=== PATIENT | female | born 1950 | race Caucasian/White ===

== ENCOUNTER 2016-12-30 10:51 | Day surgery (SDC) | payer MEDICARE ==
[2016-12-28 16:14] VITALS: BMI 27.4
[~2016-12-30 10:51] MED LIST: LACTATED RINGERS 1,000 ML IV SCH
[2016-12-30 11:30] VITALS: TEMP 98.1
[2016-12-30] MEDS ORDERED: LIDOCAINE 1% 20 ML VIAL (10MG/ML) FOR IV START INTRADERMA ONE (11:42)
[2016-12-30] MEDS ORDERED: GLYCOPYRROLATE 0.2 MG/ML 2 ML VIAL ONE (12:07)
[2016-12-30] MEDS ORDERED: PROPOFOL 10 MG/ML 20 ML VIAL IV ONE (12:07)
[2016-12-30] MEDS ORDERED: LIDOCAINE 1% INJ 10MG/ML (20 ML MDV) ONE (12:07)
--- NOTE | 2016-12-30 12:36 | P.PCN ---
Date of Procedure: 12/30/16 Procedure(s) Performed: Procedure: Esophagogastroduodenoscopy and biopsy. Preoperative diagnosis: Abdominal symptoms and abnormal CT(showing gastric fold thickening. Postoperative diagnosis: 1. Small sliding hiatal hernia with no obvious esophagitis or complicated reflux disease. 2. Mild gastritis. 3. No ulcers, tumors or gastric outlet obstruction. Preparation and sedation: Was provided by anesthesia. Brief clinical history: The patient is a 66-year-old female who I have evaluated in the office last month and scheduled her for this exam. She was referred for abdominal symptoms that started around September 2016. Back in June she had a screening colonoscopy which I performed and it was normal. In September she started to have abdominal bloating and pain under her ribs and she started to experience heartburn. Apparently the pain and heartburn is improved after a few weeks but the bloating and gas remained, mostly after she eats. No change in bowel movements, 1-3 BM per day. No nausea, vomiting or weight loss. No dietary triggers or change in medications. Had upper GI and small bowel follow-through 10/18/2016 that showed GE reflux. Ultrasound same day showed possible simple cyst on her liver. CT was done early November and that showed multiple liver cysts and gastric fold thickening. Procedure: With the patient on her left lateral decubitus position and after informed consent and adequate sedation, I passed the Olympus-GIF 160 video upper endoscope through the cricopharyngeus down the esophagus. GE junction was around 36 cm from the incisors and there was a small sliding hiatal hernia around 1 cm to 1.5 cm in size. The esophagus did not show any erosions, ulcers , strictures or Steen's esophagus. The endoscope was then passed into the stomach which was insufflated with air and inspected in detail including the retroflex view in the cardia. There was mottling and erythema consistent with gastritis but no ulcers, erosions or tumors. Pyloric channel, duodenal bulb, post bulbar area and descending duodenum appeared within normal limits, with minimal erythema and friability. Because of her symptoms, I obtained biopsies from the duodenum in addition to biopsies from the antrum and esophagus then the endoscope was withdrawn. The patient tolerated the procedure well. Plan: The patient was reassured. Will await biopsy results. She will follow- up with you as planned and further plans will be made based on her course and biopsy results. I will keep you updated on her progress.
[2016-12-30 12:46] VITALS: BP 125/77; PULSE 89; RESP 18
== END 2016-12-30 13:17 | disposition home or self-care (01) ==
LOC: ORWHC2ENDO 10:51
DX: K29.50 Unspecified chronic gastritis without bleeding (principal); K20.9 Esophagitis, unspecified; K44.9 Diaphragmatic hernia without obstruction or gangrene; E07.9 Disorder of thyroid, unspecified; Z79.899 Other long term (current) drug therapy; Z88.0 Allergy status to penicillin; Z91.048 Other nonmedicinal substance allergy status
CPT/HCPCS: 88305; 88342; 43239; J2001; J2704; 99153

== ENCOUNTER → 2023-12-14 | Outpatient (CLI) | payer MEDICARE ==
--- NOTE | 2023-12-14 20:03 | MM ---
Reason for Exam: Screening (asymptomatic). Last screening mammogram was performed 12 month(s) ago. Patient History: Menarche at age 10. First Full-Term at age 21. Hysterectomy at age 32. Maternal aunt had breast cancer. Risk Values: Therese 5 year model risk: 1.7%. NCI Lifetime model risk: 4.3%. Tissue Density: The breast tissue is heterogeneously dense. This may lower the sensitivity of mammography. Findings: Analyzed By CAD. There is no suspicious group of microcalcifications or new suspicious mass in either breast. Overall Assessment: Negative, BI-RAD 1 Management: Screening Mammogram of both breasts in 1 year. . Patient should continue monthly self-breast exams. A clinical breast exam by your physician is recommended on an annual basis. This exam should not preclude additional follow-up of suspicious palpable abnormalities. Note on Hterese scores and lifetime risk: 1. A Therese score greater than 3% is considered moderate risk. If this is the case, consider specialist referral to assess eligibility for a risk reducing agent. 2. If overall lifetime risk for the development of breast cancer is 20% or higher, the patient may qualify for future screening with alternating mammogram and breast MRI. Electronically signed and approved by: Arelis Avina M.D. Radiologist
== END | disposition home or self-care (01) ==
LOC: RADMAMWWP 06:56
PROVIDERS: ATTEND Family Medicine
DX: Z12.31 Encounter for screening mammogram for malignant neoplasm of breast (principal); Z80.3 Family history of malignant neoplasm of breast
CPT/HCPCS: 77063; 77067

== ENCOUNTER 2024-05-02 11:20 | Emergency (ER) | payer MEDICARE ==
[2024-05-02 11:28] LABS: Glucose,Whole Blood 121 mg/dL (70-110)
[2024-05-02 11:35] VITALS: BP 166/105; PULSE 80; RESP 18; TEMP 96.8
--- NOTE | 2024-05-02 11:37 | ED ---
General Adult HPI - General Stated complaint: Fall Time Seen by Provider: 05/02/24 11:23 Source: patient, EMS, RN notes reviewed, old records reviewed Limitations: altered mental status - History of Present Illness Initial comments: 74-year-old female brought in by paramedics as a democrat 1, altered level of consciousness after fall with head injury. Initial medical history is not known. Medications not known. Patient is altered. She seems to be moving all extremities. Uncertain if this patient fell and had a seizure or if she potentially had a seizure and then fell. She has a trauma activation due to the uncertainty of her presentation. She is incontinent of urine and has had multiple episodes of vomiting. - Related Data Home Medications Medication Instructions Recorded Confirmed Levothyroxine Sodium [Synthroid] 100 mcg PO DAILY 07/02/16 12/30/16 Calcium Carbonate/Vitamin D3 1 each PO DAILY 12/28/16 12/30/16 [Calcium 600-Vit D3 400 Caplet] Cholecalciferol [Vitamin D3] 1,000 unit PO DAILY 12/28/16 12/30/16 L.acidoph,Paracasei, B.lactis 1 each PO DAILY 12/28/16 12/30/16 [Probiotic] Multivitamins, Thera [Multivitamin] 1 tab PO DAILY 12/28/16 12/30/16 [place]-3 Fatty Acids/Fish Oil [Fish 1 each PO DAILY 12/28/16 12/30/16 Oil 1,000 mg Softgel] Wellness Complex 1 tab PO DAILY 12/28/16 12/30/16 Allergies Allergy/AdvReac Type Severity Reaction Status Date / Time Penicillins Allergy Severe passed Verified 05/02/24 11:35 out, "heart quit beating" adhesive tape Allergy Rash/Hives Verified 05/02/24 11:35 Review of Systems ROS Statement: Those systems with pertinent positive or pertinent negative responses have been documented in the HPI. ROS Other: All systems not noted in ROS Statement are negative. Past Medical History Past Medical History: Osteoarthritis (OA), Skin Disorder, Thyroid Disorder Additional Past Medical History / Comment(s): hx migraines(visual), psoriasis, CT scan shows thickening gastric wall per pt, c/o gas,bloating History of Any Multi-Drug Resistant Organisms: None Reported Past Surgical History: Section, Hysterectomy, Orthopedic Surgery Additional Past Surgical History / Comment(s): ganglion cyst left hand, rt hand middle finger-surgery for partial amputation of end of finger Past Anesthesia/Blood Transfusion Reactions: Family History of Problems w/ Anesthesia, Motion Sickness Additional Past Anesthesia/Blood Transfusion Reaction / Comment(s): mother-PONV Past Psychological History: No Psychological Hx Reported Past Alcohol Use History: None Reported Past Drug Use History: None Reported - Past Family History Father Family Medical History: Cancer General Exam General appearance: alert, in distress Head exam: Present: normocephalic, other (Occipital scalp laceration hematoma) Eye exam: Present: normal appearance, PERRL ENT exam: Present: normal exam Neck exam: Present: normal inspection. Absent: tenderness, meningismus Respiratory exam: Present: normal lung sounds bilaterally. Absent: respiratory distress, wheezes Cardiovascular Exam: Present: regular rate, normal rhythm GI/Abdominal exam: Present: soft. Absent: distended, tenderness, guarding Neurological exam: Present: alert, other (Patient appears to be moving). Absent: oriented X3 Skin exam: Present: warm, diaphoretic Course Vital Signs 05/02/24 11:28 Temperature 96.8 F L Pulse Rate 80 Respiratory 18 Rate Blood Pressure 166/105 O2 Sat by Pulse 98 Oximetry - Reevaluation(s) Reevaluation #1: 05/02/24 11:[address] Stone covering for trauma. Reevaluation #2: 05/02/24 11:36 Case discussed with the patient's daughter who states she has no medical problems and is on no medication. Reevaluation #3: 05/02/24 12:[address] Ascencio, recommends Keppra and blood pressure less than 150. Patient had been started on Keppra and Cardene for blood pressure control. Recommend transfer to [facility] Reevaluation #4: 05/02/24 12:[address] Herrera, will accept transfer Procedures - Laceration Laceration #1 Consent Obtained: emergent situation Indication: laceration Site: scalp Size (cm): 2 Description: linear Depth: simple, single layer Pre-repair: wound explored Size of Sutures: other (ted) Number of Sutures: 3 Technique: simple, interrupted Patient Tolerated Procedure: well Medical Decision Making - Medical Decision Making Was pt. sent in by a medical professional or institution (, PA, ENVIRONMENTAL SERVICES AIDE, urgent care, hospital, or [place] health care facility...) When possible be specific @ -No Did you speak to anyone other than the patient for history (EMS, parent, family, police, friend...)? What history was obtained from this source @ -No Did you review nursing and triage notes (agree or disagree)? Why? @ -I reviewed and agree with nursing and triage notes Were old charts reviewed (outside hosp., previous admission, EMS record, old EKG, old radiological studies, urgent care reports/EKG's, [place] health care facility records)? Report findings @ -No old charts were reviewed Differential Seizure: Recurrent seizure disorder, febrile seizure, alcohol withdrawal, stimulants, men ingitis, encephalitis, intercranial hemorrhage, intracranial tumor, stroke, eclampsia, thyrotoxicosis, hypocalcemia, hyponatremia, hypernatremia, hypomagnesemia, psychogenic, this is not meant to be an all-inclusive list. Differential CVA Ischemic stroke, hemorrhagic stroke, brain tumor, atypical migraine, Wernicke's encephalopathy, seizure, multiple sclerosis, meningitis, encephalitis, hypoglyc emia, Guillain-Rodriguez, electrolytes disturbance, myasthenia gravis.... This is not meant to be an all-inclusive list EKG interpreted by me (3pts min.). @ -Sinus rhythm rate of 60, DE interval 137, QRS duration 83, QTc [address] segment elevation. X-rays interpreted by me (1pt min.). @X-rays of the chest and pelvis are negative for traumatic injury. CT interpreted by me (1pt min.). @CT imaging of the brain shows intracranial hemorrhage, subarachnoid hemorrhage, CT angiography pending U/S interpreted by me (1pt. min.). @ -None done What testing was considered but not performed or refused? (CT, X-rays, U/S, labs)? Why? @ -None What meds were considered but not given or refused? Why? @ -None Did you discuss the management of the patient with other professionals (professionals i.e. , PA, ENVIRONMENTAL SERVICES AIDE, lab, RT, psych nurse, psych social worker, anodic treater, teacher, mail officer, pillowcase cleaner)? Give summary @ -Case discussed with Dr. Stone and Dr. Torres. This was both a trauma activation and a stroke activation. Was smoking cessation discussed for >3mins.? @ -No Was critical care preformed (if so, how long)? @ -No Were there social determinants of health that impacted care today? How? (Homel essness, low income, unemployed, alcoholism, drug addiction, transportation, low edu. Level, literacy, decrease access to med. care, snf, rehab)? @ -No Was there de-escalation of care discussed even if they declined (Discuss DNR or withdrawal of care, Hospice)? DNR status @ -No What co-morbidities impacted this encounter? (DM, HTN, Smoking, COPD, CAD, Cancer, CVA, ARF, Chemo, Hep., AIDS, mental health diagnosis, sleep apnea, morbid obesity)? @ -None Was patient admitted / discharged? Hospital course, mention meds given and route, prescriptions, significant lab abnormalities, going to OR and other pertinent info. @ -[74-year-old female who was [place] [facility]. Patient was confused, had urinary incontinence and was vomiting. She was altered with initial GCS of 12. Patient has a left occipital hematoma with 2 cm laceration. No active bleeding. Head CT shows intracranial hemorrhage, subarachnoid hemorrhage. The patient care is coordinated through the stroke team and the patient will require transfer to [facility]. Patient started on Cardene for blood pressure control and Keppra for seizure prophylaxis. Undiagnosed new problem with uncertain prognosis? @ -No Drug Therapy requiring intensive monitoring for toxicity (Heparin, Nitro, Insuli n, Cardizem)? @ -No Were any procedures done? @ -Yes, laceration repair Diagnosis/symptom? @ -Subarachnoid hemorrhage, suspected seizure, Acute, or Chronic, or Acute on Chronic? @Acute Uncomplicated (without systemic symptoms) or Complicated (systemic symptoms)? @ -Complicated Side effects of treatment? @ -No Exacerbation, Progression, or Severe Exacerbation? @ -No Poses a threat to life or bodily function? How? (Chest pain, USA, ID, pneumonia, PE, COPD, DKA, ARF, appy, cholecystitis, CVA, Diverticulitis, Homicidal, Suicidal, threat to staff... and all critical care pts) @ -[Yes, subarachnoid hemorrhage - Lab Data Result diagrams: 05/02/24 11:25 05/02/24 11:25 Lab Results 05/02/24 05/02/24 05/02/24 Range/Units 11:25 11:25 11:25 WBC 7.2 (3.8-10.6) k/uL RBC 4.74 (3.80-5.40) m/uL Hgb 13.6 (11.4-16.0) gm/dL Hct 41.8 (34.0-46.0) % MCV 88.1 (80.0-100.0) fL MCH 28.7 (25.0-35.0) pg MCHC 32.6 (31.0-37.0) g/dL RDW 12.9 (11.5-15.5) % Plt Count 364 (150-450) k/uL MPV 7.3 Neutrophils % 47 % Lymphocytes % 42 % Monocytes % 4 % Eosinophils % 3 % Basophils % 1 % Neutrophils # 3.3 (1.3-7.7) k/uL Lymphocytes # 3.0 (1.0-4.8) k/uL Monocytes # 0.3 (0-1.0) k/uL Eosinophils # 0.2 (0-0.7) k/uL Basophils # 0.1 (0-0.2) k/uL Sodium 140 (137-145) mmol/L Potassium 3.9 (3.5-5.1) mmol/L Chloride 112 H (98-107) mmol/L Carbon Dioxide 22 (22-30) mmol/L Anion Gap 6 mmol/L BUN 21 H (7-17) mg/dL Creatinine 0.76 (0.52-1.04) mg/dL Est GFR (CKD-EPI)AfAm 90 (>60 ml/min/1.73 sqM) Est GFR (CKD-EPI)NonAf 78 (>60 ml/min/1.73 sqM) Glucose 124 H (74-99) mg/dL POC Glucose (mg/dL) (70-110) mg/dL POC Glu Manufacturing Applications Engineer ID Plasma Lactic Acid Andre 2.6 H* (0.7-2.0) mmol/L Calcium 8.7 (8.4-10.2) mg/dL Total Bilirubin 0.5 (0.2-1.3) mg/dL AST 26 (14-36) U/L ALT 17 (4-34) U/L Alkaline Phosphatase 204 H (38-126) U/L Troponin I (0.000-0.034) ng/mL Total Protein 6.4 (6.3-8.2) g/dL Albumin 3.7 (3.5-5.0) g/dL Serum Alcohol <10 mg/dL 05/02/24 05/02/24 Range/Units 11:25 11:27 WBC (3.8-10.6) k/uL RBC (3.80-5.40) m/uL Hgb (11.4-16.0) gm/dL Hct (34.0-46.0) % MCV (80.0-100.0) fL MCH (25.0-35.0) pg MCHC (31.0-37.0) g/dL RDW (11.5-15.5) % Plt Count (150-450) k/uL MPV Neutrophils % % Lymphocytes % % Monocytes % % Eosinophils % % Basophils % % Neutrophils # (1.3-7.7) k/uL Lymphocytes # (1.0-4.8) k/uL Monocytes # (0-1.0) k/uL Eosinophils # (0-0.7) k/uL Basophils # (0-0.2) k/uL Sodium (137-145) mmol/L Potassium (3.5-5.1) mmol/L Chloride (98-107) mmol/L Carbon Dioxide (22-30) mmol/L Anion Gap mmol/L BUN (7-17) mg/dL Creatinine (0.52-1.04) mg/dL Est GFR (CKD-EPI)AfAm (>60 ml/min/1.73 sqM) Est GFR (CKD-EPI)NonAf (>60 ml/min/1.73 sqM) Glucose (74-99) mg/dL POC Glucose (mg/dL) 121 H (70-110) mg/dL POC Glu Manufacturing Applications Engineer ID Redd, Lindsey Plasma Lactic Acid Andre (0.7-2.0) mmol/L Calcium (8.4-10.2) mg/dL Total Bilirubin (0.2-1.3) mg/dL AST (14-36) U/L ALT (4-34) U/L Alkaline Phosphatase (38-126) U/L Troponin I <0.012 (0.000-0.034) ng/mL Total Protein (6.3-8.2) g/dL Albumin (3.5-5.0) g/dL Serum Alcohol mg/dL Critical Care Time Critical Care Time: Yes Total Critical Care Time: 35 Disposition Clinical Impression: Intracranial hemorrhage, Subarachnoid hemorrhage Disposition: OTHER INSTITUTION NOT DEFINED Condition: Serious Is patient prescribed a controlled substance at d/c from ED?: No Referrals: Dany Coleman DO [Primary Care Provider] - 1-2 days Time of Disposition: 12:09 - Out of Hospital Transfer - Req. Specs Out of Hospital Transfer - Requested Specifics: Other Emergency Center (Transfer to [facility])
[2024-05-02] MEDS: levETIRAcetam IV 2,000 MG in SODIUM CHLORIDE 0.9% 250 ML IVPB ONE (11:38)
[2024-05-02 11:39] LABS: Basophils # (A) 0.1 k/uL (0-0.2); Basophils % (A) 1 %; Eosinophils # (A) 0.2 k/uL (0-0.7); Eosinophils % (A) 3 %; HCT 41.8 % (34.0-46.0); HGB 13.6 gm/dL (11.4-16.0); Lymphocytes % (A) 42 %; MCH 28.7 pg (25.0-35.0); MCHC 32.6 g/dL (31.0-37.0); MCV 88.1 fL (80.0-100.0); Mean Platelet Volume 7.3; Monocytes # (A) 0.3 k/uL (0-1.0); Monocytes % (A) 4 %; Neutrophils # (A) 3.3 k/uL (1.3-7.7); Neutrophils % (A) 47 %; Platelet Count 364 k/uL (150-450); RBC 4.74 m/uL (3.80-5.40); RDW 12.9 % (11.5-15.5); WBC 7.2 k/uL (3.8-10.6)
[2024-05-02] MEDS: SODIUM CHLORIDE 0.9% 1,000 ML IV STA (11:45)
[2024-05-02] MEDS: ONDANSETRON 4 MG/2 ML VIAL IVP STA (11:45)
--- NOTE | 2024-05-02 11:51 | XR ---
EXAMINATION TYPE: XR pelvis AP view DATE OF EXAM: 05/02/2024 CLINICAL HISTORY: pain TECHNIQUE: Single view the pelvis is submitted. FINDINGS: No evidence for fracture, dislocation or bony lesion. Joint spaces are well-preserved. S I joints appear symmetric. IMPRESSION: 1. No acute fracture or dislocation seen. ICD 10 NO FRACTURE, INITIAL EVALUATION
--- NOTE | 2024-05-02 11:51 | XR ---
EXAMINATION TYPE: XR chest 1V portable DATE OF EXAM: 05/02/2024 HISTORY: Shortness of breath. COMPARISON: None. TECHNIQUE: Single view of the chest is submitted. FINDINGS: Demonstrated are scattered senescent parenchymal change. There is no evidence for focal infiltrate. The heart is stable. Hilar and mediastinal structures are within normal limits. Degenerative changes are seen of the dorsal spine. IMPRESSION: 1. Chronic changes without evidence for acute pulmonary disease.
[2024-05-02 11:55] LABS: ALT 17 U/L (4-34); AST 26 U/L (14-36); African American GFR (CKD) 90 (>60 ml/min/1.73 sqM); Albumin 3.7 g/dL (3.5-5.0); Alcohol <10 mg/dL; Alkaline Phosphatase 204 U/L (38-126); Anion Gap 6 mmol/L; Blood Urea Nitrogen 21 mg/dL (7-17); Calcium 8.7 mg/dL (8.4-10.2); Carbon Dioxide 22 mmol/L (22-30); Chloride 112 mmol/L (98-107); Glucose 124 mg/dL (74-99); Non-African American GFR(CKD) 78 (>60 ml/min/1.73 sqM); Potassium 3.9 mmol/L (3.5-5.1); Sodium 140 mmol/L (137-145); Total Bilirubin 0.5 mg/dL (0.2-1.3); Total Protein 6.4 g/dL (6.3-8.2)
[2024-05-02] MEDS: DIPH,PERTUS(ACELL)TETVAC-LF 0.5 ML VIAL IM ONE (12:03)
[2024-05-02] MEDS: niCARdipine 20 MG in SODIUM CHLORIDE 0.9% 192 ML IV SCH (12:14)
--- NOTE | 2024-05-02 12:18 | CT ---
EXAMINATION TYPE: CT brain cspine wo con DATE OF EXAM: 05/02/2024 COMPARISON: None HISTORY: ams CT DLP: 1298.9 mGycm, Automated exposure control for dose reduction was used. CONTRAST: None CT of the brain is performed utilizing 3 mm thick sections through the posterior fossa and 3 mm thick sections through the remaining calvarium. Study is performed within 24 hours of arrival to the hospital. Subarachnoid hemorrhage extending from the right aspect of the suprasellar cistern middle cranial fo ssa is evident. This extends around cyst sulci of the inferior right frontal and temporal lobes. Repo rt was called to the emergency room physician by Dr. Mcdaniels by telephone at the time of interpretati on. No midline shift is evident. There may be some mild edema of the inferior right frontal lobe. No temp oral horn dilatation of the ventricle is evident. Ventricles are midline. Lateral ventricles without effacement. No mass lesion is evident. No acute infarcts are evident. Ventricles and sulci are appropriate for the patient age. Soft tissue swelling is over the left parietal occipital region. No underlying fracture evident. Mild mucosal thickening is within the right and left maxillary sinuses. There is some right septal de viation. Prior uncinectomy and ethmoidectomy is evident. Mastoid air cells are clear. IMPRESSIONS: 1. Subarachnoid hemorrhage. This is predominantly within the right suprasellar cistern extending towa rds the right sulci in the inferior temporal and frontal lobes. 2. Left parieto-occipital superficial soft tissue swelling CT cervical spine. COMPARISON: None CT of the cervical spine is performed in the axial plane at 2 mm thick sections. Reconstructed image s in the coronal, and sagittal plane are reviewed on the computer. No acute fractures are evident. Vertebral body alignment is normal. Degenerative disc changes are through the cervical spine greatest at C3-4 posteriorly C4-5 and C6-7. Vertebral body heights are preserved. No spinal canal stenosis is evident. Some foraminal narrowing from uncovertebral joint hypertrophy is present at C6-7 and C3-4. IMPRESSION: 1. No acute osseous abnormality cervical spine. 2. Degenerative disc changes with some foraminal narrowing discussed above
[2024-05-02 12:29] LABS: INR 0.9 (<1.2); Partial Thromboplastin Time 20.3 sec (22.0-30.0); Prothrombin Time 10.2 sec (10.0-12.5)
--- NOTE | 2024-05-02 12:32 | CT ---
EXAMINATION TYPE: CT angio head neck DATE OF EXAM: 05/02/2024 HISTORY: Seizure and fall. COMPARISON: None CT DLP: 427 mGycm. Automated Exposure Control for Dose Reduction was Utilized. TECHNIQUE: CTA scan of the neck is performed with IV Contrast, patient injected. axial images are o btained, coronal and sagittal reformatted images are reviewed. Three-D reconstructed images are creat ed on an independent workstation and reviewed. Source images are reviewed. FINDINGS: Carotid/Vascular Structures: There is a 3 vessel arch. Common carotid arteries bifurcate into internal and external carotid arteries without significant diego w limiting stenosis. Vertebral arteries are codominant. Internal carotid arteries and vertebral arteries are patent to the skull base. Cervical of Garcia: Vertebral basilar system appears normal. Posterior cerebral vasculature is unrema rkable. Internal carotid arteries bifurcate normally into A1 and M1 segments. A2 segments are normal. Aneurysm is not clearly identified. There may be an infundibulum or aneurysm of the right M1 segment. A posterior communicating artery however is not identified. This would measure 0.1 x 0.2 cm. This is best visualized series 408 image 26 The anterior communicating artery is patent. Posterior communicating artery is not identified. IMPRESSION: 1. Suspected small aneurysm right inferior M1 segment. 2. No flow-limiting stenosis bilateral carotid bifurcations. NASCET criteria was used in interpretation of this exam?
== END 2024-05-02 13:07 | disposition other institution (70) ==
LOC: EC 11:20
DX: S06.6XAA Traumatic subarachnoid hemorrhage with loss of consciousness status unknown, initial encounter (principal); Z88.0 Allergy status to penicillin; Z91.048 Other nonmedicinal substance allergy status; Z23 Encounter for immunization; W01.0XXA Fall on same level from slipping, tripping and stumbling without subsequent striking against object, initial encounter
CPT/HCPCS: 99291; 90471; 96365; 96375; 96367; 12001; 93005; 36415; 80053; 83605; 84484; 85025; 85610; 85730; 72170; 71045; 72125; 70496; 70450; 70498; 90715; G0480; J2405; J1953; Q9967; 80320

== ENCOUNTER → 2024-06-06 | Outpatient (CLI) | payer MEDICARE ==
--- NOTE | 2024-06-06 14:29 | US ---
EXAMINATION TYPE: US lower ext pseudo artery RT DATE OF EXAM: 06/06/2024 COMPARISON: NONE CLINICAL INDICATION: Female, 74 years old with history of I72.9 ANEURYSM OF UNSPECIFIED SITE; Right g roin cath 1 month ago. Right groin pain EXAM PERFORMED: Grayscale and color Doppler duplex imaging performed of the groin, post cardiac everton ter to assess for pseudoaneurysm. SIDE PERFORMED: Right Color and Waveform Doppler performed to assess for the presence of pseudoaneurysm; Is there ultrasound evidence of a pseudoaneurysm: No Is there evidence of AV shunting: No Is there a fluid collection present: No IMPRESSION: No sonographic evidence to suggest pseudoaneurysm at this time.
== END | disposition home or self-care (01) ==
LOC: RADUSWWP 12:53
PROVIDERS: ATTEND Family Medicine
DX: I72.9 Aneurysm of unspecified site (principal); R10.31 Right lower quadrant pain
CPT/HCPCS: 93975

== ENCOUNTER → 2025-06-03 | Outpatient (CLI) | payer MEDICARE ==
--- NOTE | 2025-06-03 13:23 | MM ---
Reason for Exam: Screening (asymptomatic). Last mammogram was performed 1 year(s) and 6 month(s) ago. Patient History: Menarche at age 10. First Full-Term at age 21. Hysterectomy at age 32. Maternal aunt had breast cancer. Risk Values: Therese 5 year model risk: 1.7%. NCI Lifetime model risk: 3.8%. Prior Study Comparison: 08/28/2021 Bilateral Screening Mammogram, [facility] . 11/23/2022 Bilateral Screening Mammogram, [facility] . 12/14/2023 Bilateral MG 3D screening mammo w/cad, [facility]. Tissue Density: There are scattered areas of fibroglandular density. Findings: Analyzed By CAD. Right breast: There is no suspicious group of microcalcifications or new suspicious mass. Left breast: There is no suspicious group of microcalcifications or new suspicious mass. Overall Assessment: Negative, BI-RAD 1 Management: Screening Mammogram of both breasts in [address] [facility] will attempt to contact patient to return for supplemental views and ultrasound if indicated. Patient should continue monthly self-breast exams. A clinical breast exam by your physician is recommended on an annual basis. This exam should not preclude additional follow-up of suspicious palpable abnormalities. Note on Therese scores and lifetime risk: 1. A Therese score greater than 3% is considered moderate risk. If this is the case, consider specialist referral to assess eligibility for a risk reducing agent. 2. If overall lifetime risk for the development of breast cancer is 20% or higher, the patient may qualify for future screening with alternating mammogram and breast MRI. [facility], , 06/03/2025 1:21 PM. Electronically signed and approved by: Kartik Wilburn DO
--- NOTE | 2025-06-03 21:09 | BD ---
EXAMINATION TYPE: Axial Bone Density DATE OF EXAM: 06/03/2025 CLINICAL HISTORY: 75 years old Female. ICD-10 CODE: M85.80 DISORDER OF BONE DENSITY , Additional His tory: Height: 58.5 Weight: 138 FRAX RISK QUESTIONS: Family History (Parent hip fracture): no History of Fracture in Adulthood: yes Secondary Osteoporosis: no RISK FACTORS HISTORY OF: History of RT Wrist Fracture: yes When: age 65 Surgery to Spine/Hip(right/left)/Wrist (right/left): no MEDICATIONS: Thyroid Medications: yes Which medication: natural How Lon years Osteoporosis Medications: no EXAM MEASUREMENTS: Bone mineral densitometry was performed using the [employer] System. Bone mineral density as measured about the Lumbar spine is: ----- L1-L4(G/cm2): 0.995 T Score Values are as follows: ----- L1: -1.6 ----- L2: -2.6 ----- L3: -0.6 ----- L4: -1.7 ----- L1-L4: -1.5 Z Score Values are as follows: ----- L1: 0.3 ----- L2: -0.8 ----- L3: 1.3 ----- L4: 0.2 ----- L1-L4: 0.3 Bone mineral density baseline Bone mineral density about the R hip (g/cm2): 0.714 Bone mineral density about the L hip (g/cm2): 0.736 T Score values are as follows: -----R Neck: -2.6 -----L Neck: -2.6 -----R Total: -2.3 -----L Total: -2.2 Z Score values are as follows: -----R Neck: -0.6 -----L Neck: -0.6 -----R Total: -0.5 -----L Total: -0.4 Bone mineral density baseline FRAX%s: The graph provided illustrates a 17.8% chance for a major osteoporotic fx and a 6.0% chance f or the hips probability for fx in 10 years time. IMPRESSION: Osteoporosis (T Score less than -2.5). There is increased fracture risk and therapy is usually indicated based on age. Re-Screen 1-2 years. NOTE: T-SCORE=SD OF THE YOUNG ADULT MEAN. [facility], , 06/03/2025 9:07 PM
== END | disposition home or self-care (01) ==
LOC: RADMAMWWP 11:33
PROVIDERS: ATTEND Family Medicine
DX: Z12.31 Encounter for screening mammogram for malignant neoplasm of breast (principal); R92.323 Mammographic fibroglandular density, bilateral breasts; M81.0 Age-related osteoporosis without current pathological fracture; M85.89 Other specified disorders of bone density and structure, multiple sites; Z78.0 Asymptomatic menopausal state; Z80.3 Family history of malignant neoplasm of breast
CPT/HCPCS: 77063; 77067; 77080